=== PATIENT | male | born 1945 | race Caucasian/White ===

== ENCOUNTER 2021-03-19 14:15 | Emergency (ER) | payer MEDICARE, OTHER ==
[~2021-03-19 14:15] MED LIST: CRESTOR20 MG PO; FISH OIL + D31 EACH PO; FLEXERIL 10 MG10 MG PO; GABAPENTIN400 MG PO; LISINOPRIL-HCT1 EACH PO; MOBIC15 MG PO; NORCO 7.5-3251 EACH PO; OMEPRAZOLE20 MG PO; PLAVIX 75 MG TA75 MG PO; VITAMIN B-121000 MC3 PO; XANAX0.5 MG PO
[2021-03-19 19:08] LABS: HEMOGLOBIN 15.7 gm/dl (14.0-17.5); RED BLOOD COUNT 5.5 M/UL (4.20-5.50); WHITE BLOOD COUNT 7.7 K/UL (4.5-11.0)
[2021-03-19 19:21] LABS: BUN/CREATININE RATIO 12 (0-10)
== END 2021-03-19 23:07 | disposition home or self-care (01) ==
LOC: ER1 14:15
PROVIDERS: Physician Assistant Medical
DX: R51.9 Headache, unspecified (principal); I10 Essential (primary) hypertension; E78.5 Hyperlipidemia, unspecified; F17.290 Nicotine dependence, other tobacco product, uncomplicated; Z79.899 Other long term (current) drug therapy
CPT/HCPCS: 70496; 80053; 85025; 99284; Q9967